=== PATIENT | female | born 1975 | race Caucasian/White ===

== ENCOUNTER 2018-12-19 16:18 | Emergency (ER) | payer OTHER ==
[~2018-12-19] VITALS: Ht 160 cm; Wt 65.8 kg
[~2018-12-19 16:18] MED LIST: HAIR, SKIN & N1 EAC1 PO; L-LYSINE500 M1 PO
[2018-12-19 16:34] VITALS: BP 135/63
[2018-12-19] MEDS ORDERED: KEFLEX500 M1 PO (16:50)
[2018-12-19] MEDS ORDERED: NORCO 5-325 TA1 EAC1 PO (16:50)
[2018-12-19] MEDS ORDERED: BACTRIM DS TAB1 EACH PO (16:50)
== END 2018-12-19 17:07 | disposition home or self-care (01) ==
LOC: M.ERS 16:18
DX: S50.312A Abrasion of left elbow, initial encounter (principal); L03.114 Cellulitis of left upper limb; Z88.5 Allergy status to narcotic agent; X58.XXXA Exposure to other specified factors, initial encounter; Y92.89 Other specified places as the place of occurrence of the external cause; Y93.89 Activity, other specified; Y99.8 Other external cause status

== ENCOUNTER 2018-12-21 19:48 | Emergency (ER) | payer OTHER ==
[~2018-12-21] VITALS: Ht 160 cm; Wt 65.8 kg
[~2018-12-21 19:48] MED LIST changes: +BACTRIM DS TAB1 EACH PO; +KEFLEX500 M1 PO; +NORCO 5-325 TA1 EAC1 PO
[2018-12-21 19:51] VITALS: BP 123/72
[2018-12-21] MEDS ORDERED: L-LYSINE500 M1 PO (19:54)
== END 2018-12-21 20:09 | disposition home or self-care (01) ==
LOC: M.ERS 19:48
DX: L03.114 Cellulitis of left upper limb (principal); Z88.5 Allergy status to narcotic agent

== ENCOUNTER 2020-04-02 02:50 | Emergency (ER) | payer OTHER ==
[~2020-04-02] VITALS: Ht 157.5 cm; Wt 67.1 kg
[2020-04-02 03:11] LABS: HEMATOCRIT 38.3 % (37.0-47.0); HEMOGLOBIN 12.9 gm/dL (12.0-15.0); MCH 29.8 pg (26.0-34.0); MCHC 33.7 g/dL (28.0-37.0); MCV 88.4 fL (80.0-100.0); MPV 8.6 fl. (7.2-11.1); NUCLEATED RBCS 0 /100WBC; PLATELET COUNT* 199 thou/uL (150-400); RBC 4.34 mil/uL (4.20-5.00); RDW-CV 12.8 % (10.5-14.5); WBC 11.3 thou/uL (4.0-11.0)
[2020-04-02 03:25] LABS: URINE BILIRUBIN NEGATIVE (Negative); URINE BLOOD TRACE (Negative); URINE CLARITY CLEAR; URINE COLOR YELLOW; URINE GLUCOSE-RANDOM NEGATIVE (Negative); URINE KETONES NEGATIVE (Negative); URINE LEUKOCYTES-REFLEX NEGATIVE (Negative); URINE NITRITE-REFLEX NEGATIVE (Negative); URINE PROTEIN NEGATIVE (Negative); URINE UROBILINOGEN 0.2 E.U./dl (0.2-1.0)
[2020-04-02 03:29] LABS: CALCIUM 8.4 mg/dL (8.5-10.1); CREATININE 0.8 mg/dL (0.6-1.3); POTASSIUM 3.6 mmol/L (3.5-5.1); PROTIME 10.9 Seconds (9.20-11.50)
[2020-04-02 03:33] LABS: ALBUMIN 3.5 g/dL (3.4-5.0); TOTAL BILIRUBIN 0.6 mg/dL (<0.1-1.0); TOTAL PROTEIN 7.2 g/dL (6.4-8.2)
[2020-04-02] MEDS ORDERED: CIPRO500 M1 PO (04:07)
[2020-04-02] MEDS ORDERED: FLAGYL500 M1 PO (04:07)
[2020-04-02] MEDS ORDERED: HYDROCODON-ACE1 EAC8 PO (04:14)
[2020-04-02] MEDS ORDERED: ZOFRAN ODT4 MG PO (04:14)
[2020-04-02] MEDS ORDERED: CLINDAMYCIN-BEN25 GM TOP (04:41)
[2020-04-02 04:45] VITALS: BP 118/68
[2020-04-02 05:29] LABS: ABSOLUTE LYMPHOCYTES 0.3 thou/uL (0.8-5.3); ABSOLUTE MONOCYTES 0.3 thou/uL (0.0-1.2); ABSOLUTE NEUTROPHILS 10.6 thou/uL (1.6-8.1); ANISOCYTOSIS 1+; PLATELET ESTIMATE ADEQUATE; POIKILOCYTOSIS 1+
== END 2020-04-02 04:45 | disposition home or self-care (01) ==
LOC: M.ERS 02:50
PROVIDERS: Emergency Medicine
DX: R19.7 Diarrhea, unspecified (principal); L08.9 Local infection of the skin and subcutaneous tissue, unspecified; Z98.51 Tubal ligation status; Z79.2 Long term (current) use of antibiotics; Z79.899 Other long term (current) drug therapy; Z88.5 Allergy status to narcotic agent

== ENCOUNTER 2020-04-03 15:19 | Inpatient (IN) | payer OTHER ==
[~2020-04-03] VITALS: Ht 157.5 cm; Wt 67.1 kg
[~2020-04-03 15:19] MED LIST changes: +CIPRO500 M1 PO; +CLINDAMYCIN-BEN25 GM TOP; +FLAGYL500 M1 PO; +HYDROCODON-ACE1 EAC8 PO; +ZOFRAN ODT4 MG PO
[2020-04-03 15:38] VITALS: BP 114/71
[2020-04-03 16:07] LABS: URINE BLOOD TRACE (Negative); URINE CLARITY CLOUDY; URINE COLOR YELLOW; URINE GLUCOSE-RANDOM NEGATIVE (Negative); URINE LEUKOCYTES-REFLEX 1+ (Negative); URINE PROTEIN 1+ (Negative); URINE SPECIFIC GRAVITY >= 1.030 (1.005-1.030); URINE UROBILINOGEN 0.2 E.U./dl (0.2-1.0)
[2020-04-03 16:09] LABS: URINE BILIRUBIN 1+ (Negative); URINE KETONES 3+ (Negative); URINE NITRITE-REFLEX POSITIVE (Negative)
[2020-04-03 16:13] LABS: SQUAMOUS >10 Many /LPF (0-3)
[2020-04-03 16:14] LABS: BACTERIA-REFLEX >30 Many /HPF (None Seen); CASTS None Seen /LPF (None Seen); CRYSTALS None Seen /LPF (None Seen); ICTOTEST (BILI CONFIRMATORY) Positive (Negative); MUCUS >6 Heavy strn/LPF (None Seen); URINE RBC 0-2 Rare /HPF (0-2)
[2020-04-03 16:22] LABS: HEMATOCRIT 38.8 % (37.0-47.0); MCH 29.9 pg (26.0-34.0); MCHC 33.5 g/dL (28.0-37.0); MCV 89.4 fL (80.0-100.0); MPV 8.6 fl. (7.2-11.1); NUCLEATED RBCS 0 /100WBC; PLATELET COUNT* 171 thou/uL (150-400); RBC 4.34 mil/uL (4.20-5.00); RDW-CV 13.6 % (10.5-14.5); WBC 7.4 thou/uL (4.0-11.0)
[2020-04-03 16:33] LABS: CALCIUM 7.8 mg/dL (8.5-10.1); CREATININE 0.7 mg/dL (0.6-1.3)
[2020-04-03 16:38] LABS: ALBUMIN 3.4 g/dL (3.4-5.0); TOTAL BILIRUBIN 0.4 mg/dL (<0.1-1.0); TOTAL PROTEIN 7.5 g/dL (6.4-8.2)
[2020-04-03 16:58] LABS: ABSOLUTE LYMPHOCYTES 0.8 thou/uL (0.8-5.3); ABSOLUTE MONOCYTES 0.2 thou/uL (0.0-1.2); ABSOLUTE NEUTROPHILS 6.4 thou/uL (1.6-8.1); PLATELET ESTIMATE ADEQUATE
[2020-04-03 20:45] VITALS: BP 110/68
[2020-04-03 21:32] VITALS: BP 123/70
[2020-04-04 06:09] LABS: CALCIUM 7.8 mg/dL (8.5-10.1); CREATININE 0.6 mg/dL (0.6-1.3); MAGNESIUM 1.9 mg/dL (1.8-2.4); POTASSIUM 3.7 mmol/L (3.5-5.1)
[2020-04-04 08:00] VITALS: BP 112/64
[2020-04-04 14:00] VITALS: BP 107/63
[2020-04-04 20:30] VITALS: BP 105/61
[2020-04-05 07:10] VITALS: BP 109/63
[2020-04-05] MEDS ORDERED: VANCOMYCIN HCL125 MG PO (07:58)
[2020-04-05 09:30] VITALS: BP 109/63
[2020-04-05 09:55] VITALS: BP 109/63
--- NOTE | 2020-04-06 11:28 | EKG ---
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
== END 2020-04-05 09:57 | disposition home or self-care (01) | DRG 372 ==
LOC: M.ERS 15:19 → M.3W 18:44 → M.TBA-ER 18:44 → M.3W 21:06
PROVIDERS: Nurse Practitioner Family; ADMIT Internal Medicine; ATTEND Internal Medicine
DX: A04.72 Enterocolitis due to Clostridium difficile, not specified as recurrent (principal); T81.49XA Infection following a procedure, other surgical site, initial encounter; N30.00 Acute cystitis without hematuria; Y83.8 Other surgical procedures as the cause of abnormal reaction of the patient, or of later complication, without mention of misadventure at the time of the procedure; Z79.899 Other long term (current) drug therapy; Z88.5 Allergy status to narcotic agent; Y92.89 Other specified places as the place of occurrence of the external cause; Z20.828 Contact with and (suspected) exposure to other viral communicable diseases

== ENCOUNTER 2020-09-08 18:30 | Emergency (ER) | payer OTHER ==
[~2020-09-08] VITALS: Ht 157.5 cm; Wt 65.8 kg
[~2020-09-08 18:30] MED LIST changes: +VANCOMYCIN HCL125 MG PO
[2020-09-08] MEDS ORDERED: BLACK ELDERBER1 EACH PO (18:52)
[2020-09-08] MEDS ORDERED: L-LYSINE500 M1 PO (18:53)
[2020-09-08] MEDS ORDERED: CEPHALEXIN500 MG PO (19:56)
[2020-09-08 20:25] VITALS: BP 136/92
== END 2020-09-08 20:28 | disposition home or self-care (01) ==
LOC: M.ERS 18:30
DX: S61.211A Laceration without foreign body of left index finger without damage to nail, initial encounter (principal); Z98.51 Tubal ligation status; Z88.5 Allergy status to narcotic agent; W26.0XXA Contact with knife, initial encounter; Y93.89 Activity, other specified; Y92.89 Other specified places as the place of occurrence of the external cause; Y99.8 Other external cause status